=== PATIENT | male | born 1955 | race Caucasian/White ===

== ENCOUNTER 2020-02-18 07:29 | Day surgery (SDC) | payer OTHER ==
[~2020-02-18] VITALS: Ht 177.8 cm; Wt 104.3 kg
[~2020-02-18 07:29] MED LIST: ACYCLOVIR800 MG PO; LIDOCAINE 5%; LIDODERM700 MG TP; LISINOPRIL10 MG PO; NORCO 5-325 TA1 EACH PO; ZOFRAN ODT4 MG SL
[2020-02-18] MEDS ORDERED: HYDROCODON-ACE1 EA11 PO (09:15)
[2020-02-18] MEDS ORDERED: INDOMETHACIN50 MG PO (09:15)
--- NOTE | 2020-02-18 09:34 | NUR ---
02/18/20 0934 Anurag Mcculloughy [id number] PATIENT ARRIVES TO PACU UNRESPONSIVE TO PAIN. ORAL AIRWAY IN PLACE. AIRWAY COMPLETELY OBSTRUCTS UNLESS RN HOLDING AIRWAY OPEN. RESP EVEN AND UNLABORED, WITH RN HOLDING AIRWAY. MASK AT 8 LITERS. 0920 PATIENT OPENS EYES WITH VERBAL STIMULI. FOLLOWS COMMANDS TO OPEN MOUTH. ORAL AIRWAY REMOVED. RESP EVEN AND UNLABORED. PATIENT FOLLOWS COMMANDS TO COUGH. MASK CONTINUED AT 6 LITERS. 0925 PATIENT AWAKE. DENIES PAIN. RESP EVEN AND UNLABORED, MASK OFF, ROOM AIR SATS >92%. 0930 PATIENT SITTING UP DRINKING WATER. CONTINUES TO DENY PAIN OR NAUSEA. RIGHT KNEE ELEVATED. ICE PACK TO RIGHT KNEE.
--- NOTE | 2020-02-18 10:02 | NUR ---
PATIENT BACK IN DAY SURGERY RROM FROM PACU. AWAKE AND ALERT. DENIES PAIN. CSM TO RIGHT FOOT AND TOES WNL. PALPABLE PEDAL PULSES ON RIGHT FOOT. RIGHT KNEE DRESSING CDI. RIGHT KNEE ELEVATED ON PILLOW. ICE PACK TO RIGHT KNEE. SCDs ON. IV SITE WNL. VS CHECKED. PATIENT TOLERATING WATER. CALL LIGHT WITHIN REACH.
--- NOTE | 2020-02-18 11:54 | NUR ---
1025: CHECKED PATIENT. ASSISTED PATIENT OOB AND TO BATHROOM. GAIT STEADY. VOID WITHOUT DIFFICULTY. IV DC'D WNL. TIP INTACT. DRESSING APPLIED. DENIES PAIN. CALL LIGHT WITHIN REACH. 1100: PATIENT DRESSED AND STATES READY TO GO HOME. VS CHECKED. DISCHARGE INSTRUCTIONS GIVEN TO PATIENT. PATIENT DISCHARGED TO HOME VIA WHEELCHAIR WITH .
--- NOTE | 2020-02-18 12:14 | OR ---
[facility] [address], [place] [address] Signed DATE OF OPERATION: 02/18/2020 SURGEON: Onel Harp MD PREOPERATIVE DIAGNOSIS: Lateral meniscus tear, right knee. POSTOPERATIVE DIAGNOSES: 1. Lateral meniscus tear, right knee. 2. Chondrocalcinosis/gout. PROCEDURE PERFORMED: Right knee arthroscopy with debridement. ADVICE CLERK: Jolly SAUNDERS. ANESTHESIA: General. BLOOD LOSS: None. BRIEF HISTORY: Brandon is a 64-year-old gentleman with pain and occasional giving out symptoms in his knee. Risks and benefits of operative treatment were discussed with him after MRI confirmed lateral meniscus tear. Once consent was obtained, he was taken to the operating room. After adequate anesthesia was placed on the operating table. All downside pressure points were well padded. The left knee was flexed, abducted, and externally rotated on a well-padded leg calvillo. The right was placed in well-padded proximal thigh leg calvillo, but no tourniquet. The portal sites were pre-injected using 0.25% Marcaine with epinephrine under alcohol prep. The leg was then prepped and draped in a standard sterile fashion. Standard inferolateral and superolateral portals were made. The scope was introduced. ARTHROSCOPIC FINDINGS: Knee was noted to have significant synovitis throughout the knee particularly anterior and anterior medially. 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 The medial and lateral gutters were clear. The ACL was noted to be intact. Electronically Signed By: ONEL HARP MD 02/18/20 1214 PATIENT NAME: BRANDON PRYOR OPERATIVE REPORT DATE OF : 59 REPORT #: [id number] PHYSICIAN: ONEL HARP MD PCP: ASHLYN COWART REPORT IS CONFIDENTIAL AND NOT TO BE RELEASED WITHOUT AUTHORIZATION [facility] [address], [place] [address] Signed There was diffuse chondrocalcinosis throughout the knee. The medial compartment showed intact meniscus with grade 2 chondromalacia to the femur, grade 1 to the tibia. The lateral compartment showed an intact chondral surfaces with a longitudinal tear of the posterior meniscus. The remainder of the meniscus was intact under direct visualization. DESCRIPTION OF OPERATION: Standard inferomedial portal was made and diagnostic arthroscopy was undertaken as noted above. The straight and curved biters were used to trim the lateral meniscus tear back to a stable rim, this was then smoothed using shaver and all debris was evacuated. The scope was then withdrawn. Portals were closed with 3-0 nylon. The knee was injected with 60 mg Toradol at the end of the case. The wounds were closed with 3-0 nylon. The wounds were dressed with Adaptic ABD and Bc wrap. He tolerated the procedure well. All sponge, needle, and instrument counts were correct. Onel Harp MD BA/ALBINL /[id number] Copies: ~ Electronically Signed By: ONEL HARP MD 02/18/20 1214 PATIENT NAME: BRANDON PRYOR OPERATIVE REPORT DATE OF : 59 REPORT #: [id number] PHYSICIAN: ONEL HARP MD PCP: ASHLYN COWART REPORT IS CONFIDENTIAL AND NOT TO BE RELEASED WITHOUT AUTHORIZATION
== END 2020-02-18 11:00 | disposition home or self-care (01) ==
LOC: DS 07:29
PROVIDERS: Specialist
PROC: 0SBC4ZZ Excision of Right Knee Joint, Percutaneous Endoscopic Approach (ICD-10-PCS; principal; 2020-02-18 09:00)
DX: S83.281A Other tear of lateral meniscus, current injury, right knee, initial encounter (principal); M22.41 Chondromalacia patellae, right knee; M65.9 Synovitis and tenosynovitis, unspecified; I10 Essential (primary) hypertension; Z79.899 Other long term (current) drug therapy
CPT/HCPCS: 01400; J0690; J1100; J1885; J2250; J2405; J2704; J2765; J3010; J7121

== ENCOUNTER 2020-05-12 07:32 | Day surgery (SDC) | payer OTHER ==
[~2020-05-12] VITALS: Ht 177.8 cm; Wt 102.3 kg
[~2020-05-12 07:32] MED LIST changes: +HYDROCODON-ACE1 EA11 PO; +INDOMETHACIN50 MG PO
--- NOTE | 2020-05-12 09:22 | NUR ---
05/12/20 0922 Irene Moffett 0917 PT ARRIVED TO PACU ON 2L VIA NC, PT AWAKE AND TALKING TO RN. PT DENIES PAIN AND NAUSEA. VSS. 0920 PT ROLLED TO BACK AND HOB INCREASED.
--- NOTE | 2020-05-15 14:32 | PATH ---
[facility] [place] [facility] [address] [facility] [place] [address] Signed SPECIMEN(S): A ASCENDING POLYP SPECIMEN(S): B CECAL POLYP SPECIMEN(S): C DESCENDING POLYP SPECIMEN(S): D SIGMOID POLYPS SPECIMEN(S): E SIGMOID POLYP SPECIMEN SOURCE: A. ASCENDING POLYP B. CECAL POLYP C. DESCENDING POLYP D. SIGMOID POLYPS E. SIGMOID POLYP CLINICAL HISTORY: Screening colonoscopy; polyps x 6. MICROSCOPIC DESCRIPTION: Histologic sections of all submitted blocks are examined by light microscopy. These findings, together with the gross examination, support the pathologic diagnosis. FINAL PATHOLOGIC DIAGNOSIS: A. Ascending polyp, biopsy: - Tubular adenoma (one fragment). B. Cecal polyp, biopsy: - Tubular adenoma One fragment). C. Descending polyp, biopsy: - Hyperplastic polyp (one fragment). D. Sigmoid polyps, biopsy: - Tubular adenoma (two fragments). E. Sigmoid polyp, biopsy: - Polypoid fragment of benign colonic mucosa, negative for specific diagnostic abnormality. JVR:cml:[id number] GROSS DESCRIPTION: Five specimens are received in five containers, labeled "DB." A. The specimen, labeled "DB, 1," and designated on the requisition "ascending polyp," is received in formalin and consists of one galo soft tissue fragment with vegetative matter that measures 0.3 cm in greatest dimension. The specimen is entirely submitted in cassette (A1). B. The specimen, labeled "DB, 2," and designated on the requisition "cecum PATIENT NAME: BRANDON PRYOR JONNIE PATHOLOGY DATE OF : 59 REPORT #: [id number] PHYSICIAN: BRIAN MAJOR PCP: ASHLYN COWART REPORT IS CONFIDENTIAL AND NOT TO BE RELEASED WITHOUT AUTHORIZATION [facility] [place] [facility] [address] [place], [place] [address] Signed polyp," is received in formalin and consists of one galo soft tissue fragment that measures 0.7 cm in greatest dimension. The specimen is inked black, bisected, and entirely submitted in cassette (B1). C. The specimen, labeled "DB, 3," and designated on the requisition "descending polyp," is received in formalin and consists of two galo soft tissue fragments that measure 0.3 cm in greatest dimension. The specimen is entirely submitted in cassette (C1). D. The specimen, labeled "DB, 4," and designated on the requisition "sigmoid polyp x 2," is received in formalin and consists of four galo soft tissue fragments that measure 0.4 cm in greatest dimension. The specimen is entirely submitted in cassette (D1). E. The specimen, labeled "DB, 5," and designated on the requisition "sigmoid polyp," is received in formalin and consists of one galo soft tissue fragment that measures 0.4 cm in greatest dimension. The specimen is entirely submitted in cassette (E1). AT (under the direct supervision of a pathologist) The Gross Description was prepared using a voice recognition system. The report was reviewed for accuracy; however, sound-alike word errors, addition and/or deletions may occur. If there is any question about this report, please contact Client Services. PERFORMING LABORATORY: The technical component was performed by [facility], [address] [place] [address] (Aquatics Assistant Department Head: Sandra Mello MD; CLIA# [id number]). Professional interpretation was performed by [facility], [facility], [facility] [facility], [place] [address] (Aquatics Assistant Department Head: Valeriano Hernandez M.D.). Diagnostician: Valeriano Hernandez MD Pathologist Electronically Signed 05/15/2020 Copies: ~ PATIENT NAME: BRANDON PRYOR PATHOLOGY DATE OF : 59 REPORT #: [id number] PHYSICIAN: BRIAN PATHOLOGY PCP: ASHLYN COWART REPORT IS CONFIDENTIAL AND NOT TO BE RELEASED WITHOUT AUTHORIZATION
--- NOTE | 2020-05-15 15:17 | OR ---
[facility] [place] [facility] [address] [facility] [place] [place] [address] Signed DATE OF OPERATION: 05/12/2020 SURGEON: Micky Singh MD PREOPERATIVE DIAGNOSIS: Colon screening. POSTOPERATIVE DIAGNOSES: 1. Sigmoid . 2. Polyps x6. PROCEDURE: Total colonoscopy to cecum with cold morcellation polypectomy x4, cold snare polypectomy x1 and hot snare polypectomy x1. ANESTHESIA: Intravenous sedation, fentanyl 100 mcg and Versed 8 mg. INDICATION: This 64-year-old white man is a patient of VAIBHAV Walls, has never undergone colonoscopy in the past. He has no family history of colon cancer and no symptoms of bleeding diarrhea or constipation. He is admitted at this time to undergo screening colonoscopy. He understands the risks of bleeding, infection, perforation. FINDINGS: The prep was quite good. Complete colonoscopy was undertaken to the cecum without question. He had two sessile polyps in the cecal region, both excised with snare technique and four other polyps all on the left side of the colon small, but sessile and probably adenomatous, they were excised with cold morcellation technique. The remaining colon was normal other than diverticulosis of the sigmoid. DESCRIPTION OF PROCEDURE: The patient was brought to the endoscopy suite and placed in lateral decubitus position, given intravenous sedation to the point of slurred speech and nystagmus. Digital rectal examination was normal. An Olympus video colonoscope was passed in the rectum and manipulated throughout the colon noting diverticular change of the sigmoid and left colon. Scope was ultimately advanced to the right colon where a small sessile polyp was noted, this was excised with cold snare technique, passed for pathology. Further intubation of the cecum itself Electronically Signed By: MICKY SINGH MD 05/15/20 1517 PATIENT NAME: BRANDON PRYOR OPERATIVE REPORT DATE OF : 59 REPORT #: [id number] PHYSICIAN: MICKY SINGH MD PCP: ONEYDA TADEO REPORT IS CONFIDENTIAL AND NOT TO BE RELEASED WITHOUT AUTHORIZATION [facility] [place] [facility] [address] [place], [place] [address] Signed showed a larger sessile polyp, this was excised with hot snare polypectomy technique. Specimen was retrieved and passed for pathology also. The scope was withdrawn and examination upon withdrawal showed no sign of abnormality until the proximal descending colon where a small sessile polyp was noted, this was excised with cold morcellation technique. Another similar such polyp in the mid descending colon similarly excised and two others in the sigmoid excised with cold morcellation technique. Withdrawal of scope to the rectum showed no sign of abnormality including on retroflex view. The scope was removed and the patient was taken to the recovery room in good condition. CONCLUDING DIAGNOSIS: Polyps x6, diverticulosis. PLAN: Recommend a repeat colonoscopy in one year as he had more than 4 polyps. I would recommend high-fiber diet as well. He will return to the ongoing care of Oneyda Tadeo as well. MD NATHANAEL Salazar/STEPHANIE /[id number] cc: VAIBHAV Walls Copies: ~ Electronically Signed By: MICKY SINGH MD 05/15/20 1517 PATIENT NAME: BRANDON PRYOR OPERATIVE REPORT DATE OF : 59 REPORT #: [id number] PHYSICIAN: MICKY SINGH MD PCP: ONEYDA TADEO REPORT IS CONFIDENTIAL AND NOT TO BE RELEASED WITHOUT AUTHORIZATION
== END 2020-05-12 09:53 | disposition home or self-care (01) ==
LOC: OPS 07:32 → DS 07:34 → OPS 08:30
PROVIDERS: ATTEND Surgery
PROC: 0DBK8ZX Excision of Ascending Colon, Via Natural or Artificial Opening Endoscopic, Diagnostic (ICD-10-PCS; 2020-05-12)
PROC: 0DBN8ZX Excision of Sigmoid Colon, Via Natural or Artificial Opening Endoscopic, Diagnostic (ICD-10-PCS; 2020-05-12)
PROC: 0DBM8ZX Excision of Descending Colon, Via Natural or Artificial Opening Endoscopic, Diagnostic (ICD-10-PCS; 2020-05-12)
PROC: 0DBH8ZX Excision of Cecum, Via Natural or Artificial Opening Endoscopic, Diagnostic (ICD-10-PCS; principal; 2020-05-12 08:30)
DX: Z12.11 Encounter for screening for malignant neoplasm of colon (principal); D12.2 Benign neoplasm of ascending colon; D12.0 Benign neoplasm of cecum; D12.5 Benign neoplasm of sigmoid colon; K63.5 Polyp of colon; K57.30 Diverticulosis of large intestine without perforation or abscess without bleeding; I10 Essential (primary) hypertension; Z79.899 Other long term (current) drug therapy
CPT/HCPCS: 99153; G0500; J2250; J3010

== ENCOUNTER 2025-05-26 06:49 | Day surgery (SDC) | payer MEDICARE, OTHER ==
[2025-05-23 07:27] VITALS: BP 141/81
[~2025-05-26] VITALS: Ht 177.8 cm; Wt 103.6 kg
[~2025-05-26 06:49] MED LIST changes: +LACTATED RINGER'S 1,000 ML IV SCH; +LIPITOR40 MG PO; +SPIRONOLACTONE25 MG PO; +TADALAFIL5 M1 PO
[2025-05-26] MEDS ORDERED: IBLOOD GLUCOSE TEST STRIP 1 EA TEST VI PRN ×2 (07:00→07:30)
[2025-05-26] MEDS ORDERED: LIDOCAINE HCL 1% 5 ML SDV INJ ONE (07:00)
[2025-05-26 07:08] VITALS: BP 139/82
[2025-05-26] MEDS ORDERED: NALOXONE HCL 0.4 MG SYR IV PRN (07:30)
[2025-05-26] MEDS ORDERED: LIDOCAINE HCL 2% 5 ML SDV ONE (08:51)
[2025-05-26] MEDS ORDERED: GLYCOPYRROLATE 1 MG/5 ML MDV ONE (09:05)
--- NOTE | 2025-05-26 09:37 | NUR ---
05/26/25 0937 Yadira Tucker 0930-PATIENT ARRIVED TO PACU ON 2L NC RR EVEN NONAROUSABLE LAYING LEFT LATERAL. PATIENT IS SNORING. IVF INFUSING. SINUS BRADYCARDIA WITH PACS.
[2025-05-26 10:09] VITALS: BP 116/89
--- NOTE | 2025-05-26 11:31 | OR ---
[facility] [address] [place], [place] [address] Signed DATE OF OPERATION: 05/26/2025 SURGEON: Micky Singh MD PREOPERATIVE DIAGNOSES: 1. Family history of colon cancer. 2. History of polyp (pedunculated polyp 2021). POSTOPERATIVE DIAGNOSES: 1. Polyps x5. 2. Diverticulosis. PROCEDURES: Total colonoscopy to cecum with cold morcellation polypectomy x3, hot snare polypectomy x2. ANESTHESIA: Intravenous sedation; propofol infusion, Bonny Orantes CRNA. INDICATION: This 69-year-old white man is a patient of Oneyda Cowart most recently and has undergone colonoscopy by me in the past. He last underwent colonoscopy in 2021, was found to have a pedunculated polyp. He has had diverticula as well. Quite notably he has extensive family history of colon cancer including his father, grandfather, brother and great uncle. He currently has no symptoms of bleeding, diarrhea, or constipation. On his last colonoscopy, he did require atropine for bradycardia. Normally, he is somewhat bradycardic with a heart rate of 44 more problematic as would be expected. On that basis, propofol infusional sedation is recommended. The risk of bleeding, infection, perforation, and so forth were reviewed with him. He understands and wished to proceed. FINDINGS: The prep was good. Complete colonoscopy was undertaken to the cecum with full intubation of the cecum. He had five polyps in total, one in the right colon, another at the transverse, two at the splenic flexure. Another polyp was noted at the right colon also. He had scattered diverticula as well. DESCRIPTION OF PROCEDURE: The patient was brought to the endoscopy suite and placed in the lateral decubitus position, given intravenous sedation to the point of slurred speech and nystagmus with Electronically Signed By: MICKY SINGH MD 05/26/25 1131 PATIENT NAME: BRANDON PRYOR OPERATIVE REPORT DATE OF : 59 REPORT #: [id number] PHYSICIAN: MICKY SINGH MD PCP: ONEYDA COWART NP REPORT IS CONFIDENTIAL AND NOT TO BE RELEASED WITHOUT AUTHORIZATION [facility] [address] [place], [place] [address] Signed full cardiopulmonary monitoring by the superintendent marine oil terminal. A digital rectal examination was normal. An Olympus video colonoscope was passed in the rectum and manipulated throughout the colon noting a polyp at the splenic flexure. This was excised with cold snare technique. Adjacent to it was another small polyp, this was excised with cold morcellation technique. The scope was advanced ultimately to the cecum, which was found to be normal. The scope was withdrawn. In the mid ascending colon, there was a somewhat short pedunculated polyp. This was excised with hot snare polypectomy technique. The polyp could not be easily grasp and therefore Hawk net was used to grasp the polyp. The scope was withdrawn and ultimately the polyp offloaded. The scope was reintroduced and passed to approximately the hepatic flexure and then withdrawn once again. A small polyp was noted in the transverse colon, which was excised with cold morcellation technique. Further withdrawal showed the two previous excised polyp sites in the splenic flexure, which were hemostatic. Further withdrawal confirmed diverticulitis. Retroflexed view of the rectum was normal. The scope was removed and the patient was taken to the recovery room in good condition. CONCLUDING DIAGNOSES: Polyps x5 and diverticulosis. PLAN: He should have repeat no longer than five years, but I would recommend 1 to 3 years based on his family history and the number of polyps seen on today's evaluation. He should maintain a high-fiber diet as regard to diverticular disease. He will return to the ongoing care of his primary provider, ALEXANDREA Walls. MD NATHANAEL Salazar/STEPHANIE /[id number] cc: ALEXANDREA Walls Electronically Signed By: MICKY SINGH MD 05/26/25 1131 PATIENT NAME: BRANDON PRYOR OPERATIVE REPORT DATE OF : 59 REPORT #: [id number] PHYSICIAN: MICKY SINGH MD PCP: ONEYDA COWART NP REPORT IS CONFIDENTIAL AND NOT TO BE RELEASED WITHOUT AUTHORIZATION [facility] [address] [place] [address] Signed Copies: ~ Electronically Signed By: MICKY SINGH MD 05/26/25 1131 PATIENT NAME: BRANDON PRYOR OPERATIVE REPORT DATE OF : 59 REPORT #: [id number] PHYSICIAN: MICKY SINGH MD PCP: ONEYDA COWART NP REPORT IS CONFIDENTIAL AND NOT TO BE RELEASED WITHOUT AUTHORIZATION
--- NOTE | 2025-05-30 10:42 | PATH ---
[facility] [address] [place], [place] [address] Signed SPECIMEN(S): A SPLENIC FLEXURE COLON POLYPS SPECIMEN(S): B ASCENDING COLON POLYPS SPECIMEN(S): C TRANSVERSE COLON POLYP SPECIMEN SOURCE: A. SPLENIC FLEXURE COLON POLYPS B. ASCENDING COLON POLYPS C. TRANSVERSE COLON POLYP CLINICAL HISTORY: History of polyps, diverticulosis FINAL PATHOLOGIC DIAGNOSIS: A. Splenic flexure colon polyp: - Tubular adenoma (two fragments). B. Ascending colon polyp: - Tubular adenoma. C. Transverse colon polyp: - Hyperplastic polyp (one fragment). [facility] MICROSCOPIC EXAMINATION: Histologic sections of all submitted blocks are examined by light microscopy. These findings, together with the gross examination, support the pathologic diagnosis. GROSS DESCRIPTION: A. The specimen, labeled and designated "Bensel, splenic flexure colon polyp," is received in formalin and consists of two galo soft tissue fragments, ranging from 0.2-0.5 cm. Entirely submitted in (A1). B. The specimen, labeled and designated "Bensel, ascending colon polyp," is received in formalin and consists of two fragments of galo soft tissue (0.2-0.4 cm in greatest dimension), and a pink-galo polypoid piece of tissue (0.9 x 0.7 x 0.7 cm). The possible resection margin of the polypoid piece of tissue is inked blue, and the tissue is trisected to reveal pink-galo soft cut surfaces. The specimen is submitted entirely in cassette (B1). C. The specimen, labeled and designated "Bensel, transverse colon polyp," is received in formalin and consists of three galo soft tissue fragments, ranging from 0.1-0.3 cm. Entirely submitted in (C1). PATIENT NAME: BRANDON PRYOR PATHOLOGY DATE OF : 59 REPORT #: [id number] PHYSICIAN: BRIAN PATHOLOGY PCP: ASHLYN COWART NP REPORT IS CONFIDENTIAL AND NOT TO BE RELEASED WITHOUT AUTHORIZATION [facility] [address] [place], [place] [address] Signed VB (under the direct supervision of a pathologist) The Gross Description was prepared using a voice recognition system. The report was reviewed for accuracy; however, sound-alike word errors, addition and/or deletions may occur. If there is any question about this report, please contact Client Services. ADDITIONAL NOTES: Immunohistochemical and/or in situ hybridization studies if performed in this case included appropriate positive controls that reacted as expected. This test was developed and its performance characteristics determined by [facility]. It has not been cleared or approved by the U.S. Food and Drug Administration. The FDA has determined that such clearance or approval is not necessary. This test is used for clinical purposes. It should not be regarded as investigational or for research. [facility] is certified under the Clinical Laboratory Improvement Amendments of 1988 (CLIA) as qualified to perform high complexity clinical laboratory testing. PERFORMING LABORATORY: Technical component was performed by [facility], [address] [place] [id number] (CLIA# [id number]). Professional interpretation was performed by [facility] - [place] [facility] - [address] [place] [address] (CLIA#: [id number]). Diagnostician: Valeriano Hernandez MD Pathologist Electronically Signed 05/30/2025 Copies: ~ PATIENT NAME: NOAMRODBRANDON JONNIE PATHOLOGY DATE OF : 59 REPORT #: [id number] PHYSICIAN: BRIAN MAJOR PCP: ASHLYN COWART NP REPORT IS CONFIDENTIAL AND NOT TO BE RELEASED WITHOUT AUTHORIZATION
== END 2025-05-26 10:15 | disposition home or self-care (01) ==
LOC: OPS 06:49 → DS 06:49 → OPS 08:15 → DS 11:00
PROVIDERS: ATTEND Surgery
PROC: 0DBL8ZX Excision of Transverse Colon, Via Natural or Artificial Opening Endoscopic, Diagnostic (ICD-10-PCS; 2025-05-26)
PROC: 0DBK8ZX Excision of Ascending Colon, Via Natural or Artificial Opening Endoscopic, Diagnostic (ICD-10-PCS; principal; 2025-05-26 08:15)
DX: D12.2 Benign neoplasm of ascending colon (principal); D12.3 Benign neoplasm of transverse colon; K57.30 Diverticulosis of large intestine without perforation or abscess without bleeding; I10 Essential (primary) hypertension; R97.20 Elevated prostate specific antigen [PSA]; R00.1 Bradycardia, unspecified; Z80.0 Family history of malignant neoplasm of digestive organs; Z80.42 Family history of malignant neoplasm of prostate; Z79.899 Other long term (current) drug therapy; Z98.890 Other specified postprocedural states
CPT/HCPCS: 00811; 88305; J2003; J2704